=== PATIENT | male | born 1965 | race Caucasian/White ===

== ENCOUNTER 2022-06-21 05:05 | Inpatient (IN) ==
--- NOTE | 2022-06-01 12:09 | PAT Medication Instructions ---
Medication Instructions Date of Service June 01, 2022 Home Medications allopurinol 100 mg tablet 200 mg PO QAM atorvastatin 20 mg tablet 20 mg PO QPM cholecalciferol (vitamin D3) 50 mcg (2,000 unit) tablet (Vitamin D3) 2,000 unit PO BID furosemide 20 mg tablet (Lasix) 20 mg PO DAILY PRN LEG SWELLING hydrochlorothiazide 25 mg tablet 25 mg PO QPM insulin glargine 100 unit/mL (3 mL) subcutaneous pen (Basaglar KwikPen U-100 Insulin) 52 unit subcut HS losartan 100 mg tablet 100 mg PO QPM metformin 1,000 mg tablet 1,000 mg PO BID metoprolol succinate 100 mg tablet,extended release 24 hr 100 mg PO BID potassium citrate 15 mEq (1,620 mg) tablet,extended release (Urocit-K 15) 30 meq PO BID repaglinide 1 mg tablet (Prandin) 1 mg PO QAM warfarin 5 mg tablet 5 mg PO UD oxycodone 5 mg tablet 5 mg PO HS PRN Pain potassium chloride 10 mEq tablet,extended release 10 meq PO DAILY PRN Other semaglutide 1 mg/dose (4 mg/3 mL) subcutaneous pen injector (Ozempic) 1 mg subcut WK Continue as directed semaglutide 1 mg/dose (4 mg/3 mL) subcutaneous pen injector (Ozempic) 1 mg subcut WK ASK your prescriber and surgeon warfarin 5 mg tablet 5 mg PO UD DO NOT take the morning of surgery cholecalciferol (vitamin D3) 50 mcg (2,000 unit) tablet (Vitamin D3) 2,000 unit PO BID furosemide 20 mg tablet (Lasix) 20 mg PO DAILY PRN LEG SWELLING metformin 1,000 mg tablet 1,000 mg PO BID potassium citrate 15 mEq (1,620 mg) tablet,extended release (Urocit-K 15) 30 meq PO BID repaglinide 1 mg tablet (Prandin) 1 mg PO QAM potassium chloride 10 mEq tablet,extended release 10 meq PO DAILY PRN Other Take morning of surgery With a small sip of water, OTHERWISE NOTHING TO EAT OR DRINK AFTER MIDNIGHT: allopurinol 100 mg tablet 200 mg PO QAM metoprolol succinate 100 mg tablet,extended release 24 hr 100 mg PO BID Take evening before surgery atorvastatin 20 mg tablet 20 mg PO QPM cholecalciferol (vitamin D3) 50 mcg (2,000 unit) tablet (Vitamin D3) 2,000 unit PO BID furosemide 20 mg tablet (Lasix) 20 mg PO DAILY PRN LEG SWELLING (if needed) hydrochlorothiazide 25 mg tablet 25 mg PO QPM insulin glargine 100 unit/mL (3 mL) subcutaneous pen (Basaglar KwikPen U-100 Insulin) 52 unit subcut HS losartan 100 mg tablet 100 mg PO QPM metformin 1,000 mg tablet 1,000 mg PO BID metoprolol succinate 100 mg tablet,extended release 24 hr 100 mg PO BID potassium citrate 15 mEq (1,620 mg) tablet,extended release (Urocit-K 15) 30 meq PO BID oxycodone 5 mg tablet 5 mg PO HS PRN Pain (if needed) potassium chloride 10 mEq tablet,extended release 10 meq PO DAILY PRN Other (if needed) Other Notes If you have any questions please call us at [phone] or [phone] or [phone] or [phone]
--- NOTE | 2022-06-08 15:43 | Anesthesiology Consultation ---
Date of Service June 08, 2022 Assessment & Plan (1) Encounter for pre-operative examination: - Case discussed in detail with Dr. Truong including afib with RVR ranging 90s- 110s after metoprolol increase by cardiology. He advised pt is acceptable to proceed at this time and proceeding with surgery will be determined by anesthesiologist evaluation am DOS. He advised nothing further needed from his standpoint other than sending cardiology FYI message of persistent similar heart rates for continuity of care. Form completed. - check BSG and coags STAT am DOS. Bolus to anesthesiologist evaluation and discretion DOS. - pt plans to trim facial hair prior to surgery. - cardiology clearance 05/30/22 [facility]: "...permanent AF, metoprolol succinate (failed sotalol and tikosyn, QTc prolongation)...partial flutter s/p CTI ablation, 2007...borderline enlarged aorta, root and asc aorta measuring 3.9 cm 09/2020...chronic HFpEF, NYHA class 1-2...preoperative risk stratification regarding upcoming right hip replacement with Dr. Crowell...feeling well from a cardiac standpoint...repeat resting echo to reassess LVEF and diastolic dysfunction...able to assess valvular status at this time...permanent atrial fibrillation, ventricular rates rapid today in office averaging between 90s to 110s. asymptomatic...increase metoprolol to 100 mg twice daily...enlarged aortic root and ascending aorta measuring 3.9 cm...reassess aortic measurements on resting echocardiogram...nuclear stress test ordered to assess cardiac risk for orthopedic surgery...pending results to upcoming testing patient...will likely be placed at a moderate risk, less than 6.6%, for any adverse perioperative cardiovascular events associated with right hip surgery...no history of DVT/PE or CVA/TIA...will not require Lovenox bridge..." - COVID screening: Per assessment on 06/08/2022: Travel screen negative, no known COVID-19 positive contacts or current COVID-19 related symptoms in past 2 weeks. Pt vaccinated. Surgeon arranging preop COVID testing, scheduled 06/19/2022. Awaiting results. Chart Review Chart Review: Acceptable Risk for Surgery and Patient seen in Pre Admission Testing Teaching & Discussion Pre-Anesthesia Teaching/Discussion Notes: Instructed NPO after midnight before surgery, except medications with 15 cc of water. Medication instructions provided according to the PAT guidelines. History Surgery Operation Date: 06/21/22 07:00 Proposed Procedures p Right Total Hip Arthroplasty, Possible Femoral Head Autofraft, Possible Dual Mobility - Peter Crowell MD Height/Weight Height: 6 ft 1 in Weight: 164.4 kg Allergies Allergy/AdvReac Type Severity Reaction Status Date / Time No Known Allergies Allergy Mild Verified 05/31/22 13:17 Medications Home Medications Medication Instructions Recorded Confirmed Last Taken allopurinol 100 mg tablet 200 mg PO QAM 08/13/19 05/31/22 08/19/19 08:00 atorvastatin 20 mg tablet 20 mg PO QPM 08/13/19 05/31/22 08/19/19 21:00 cholecalciferol (vitamin D3) 50 2,000 unit PO BID 08/13/19 05/31/22 08/19/19 21:00 mcg (2,000 unit) tablet (Vitamin D3) furosemide 20 mg tablet (Lasix) 20 mg PO DAILY PRN LEG SWELLING 08/13/19 05/31/22 08/19/19 08:00 hydrochlorothiazide 25 mg tablet 25 mg PO QPM 08/13/19 05/31/22 08/19/19 21:00 insulin glargine 100 unit/mL (3 52 unit subcut HS 08/13/19 05/31/22 08/19/19 21:00 mL) subcutaneous pen (Basaglar KwikPen U-100 Insulin) losartan 100 mg tablet 100 mg PO QPM 08/13/19 05/31/22 08/19/19 21:00 metformin 1,000 mg tablet 1,000 mg PO BID 08/13/19 05/31/22 08/19/19 21:00 metoprolol succinate 100 mg 100 mg PO BID 08/13/19 05/31/22 08/19/19 08:00 tablet,extended release 24 hr potassium citrate 15 mEq (1,620 30 meq PO BID 08/13/19 05/31/22 08/19/19 21:00 mg) tablet,extended release (Urocit-K 15) repaglinide 1 mg tablet (Prandin) 1 mg PO QAM 08/13/19 05/31/22 08/19/19 08:00 warfarin 5 mg tablet 5 mg PO UD 08/13/19 05/31/22 08/14/19 21:00 oxycodone 5 mg tablet 5 mg PO HS PRN Pain 05/31/22 05/31/22 Unknown potassium chloride 10 mEq 10 meq PO DAILY PRN Other 05/31/22 05/31/22 Unknown tablet,extended release semaglutide 1 mg/dose (4 mg/3 mL) 1 mg subcut WK 05/31/22 05/31/22 Unknown subcutaneous pen injector (Ozempic) Past Medical History Medical History (Updated 06/08/22 @ 16:09 by Ivana De La Cruz PA-C) Atrial fibrillation anticoagulated, follows with Dr. Todd with [facility] Chronic heart failure EF 55-59%, grade 3 diastolic dysfunction CKD (chronic kidney disease), stage III Diabetes mellitus, type 2 IDDM Edema lower legs and feet > prn Lasix, wears compression hose; stable per pt since last cardio visit Enlarged aorta 3.9 cm Gout History of cardioversion X 3 History of COVID-19 08/2021-myalgias, rhinorrhea, fever, cough-lasted 5 days-denies hospitalization-full resolution of symptoms per pt Hyperlipidemia Hypertension controlled, stable per pt Kidney stones passed on own Sleep apnea NO DEVICE USED Patient denies h/o stroke, seizures, heart attack, blood clots or blood transfusions. Exercise / Class Metabolic Activity II 4-5 Yardwork/Stairs/Walk up hill (denies CP or SOB with 1 FOS) Past Family History Family History Father Family history of diabetes mellitus Grandmother (Maternal) Family history of diabetes mellitus Past Surgical History Surgical History History of cardiac cath x2 > no stents History of cardiac radiofrequency ablation X 1 (DONE AT [facility]) for Atrial flutter, over 5 yrs ago History of colonoscopy History of tonsillectomy Hx of vasectomy Past Anesthesia History No Hx of Anesthesia Complications and No Family Hx of Anesthesia Complications History of PONV No Hx of PONV and Hx of Motion Sickness Social History Smoking Status: Former smoker tobacco type: cigarettes Do You Dip or Chew Tobacco: No Smoking End Date: over 30 yrs Hx Alcohol Use: Yes alcohol intake frequency: holidays/special occasions only Hx Substance Use: No substance use type: does not use Review of Systems Occasional non-productive cough, chronic, denies change or worsening. Patient denies chest pain, shortness of breath, dyspnea on exertion, reflux, fever, chills, wheezing, or palpitations. Physical Exam Vital Signs Vitals BP 115/83 P 92-103 TEMP 98.7 SP02 97% on RA RESP 17 Physical Facial hair Full cervical extension range of motion without pain TMD 3.5 finger breadths Mallampati Score 3 Dentition: intact, several crowns-unsure if any in front; denies chipped or loose teeth, implants or bridges Lungs: normal respiratory effort. Clear throughout to auscultation, no adventi tious breath sounds Cardiac: irregularly irregular rhythm, no murmurs Carotid arteries: negative bruit bilat Lab Results Anesthesia Preop Results Results Anesthesia Widget: WBC 5.68 K/ul (4.8-10.8) 06/08/22 Hgb 15.3 g/dl (14.0-18.0) 06/08/22 Hct 45.5 % (40.1-51.0) 06/08/22 Plt 167 K/uL (130-400) 06/08/22 Na 135 mmol/L (136-145) L 06/08/22 K 4.3 mmol/L (3.5-5.1) 06/08/22 Cl 99 mmol/L (98-107) 06/08/22 CO2 25 mmol/L (21-32) 06/08/22 BUN 28 mg/dl (6-23) H 06/08/22 Creat 1.48 mg/dl (0.6-1.4) H 06/08/22 Glucose Level 92 mg/dl (70-99(Fasting)) 06/08/22 PT 30.5 Seconds (9.0-12.0) H 06/08/22 PTT 43.8 Seconds (21.0-31.0) H 06/08/22 INR 3.0 (0.9-1.1) H 06/08/22 HA1c 7.3 % (4.5-5.6) H 06/08/22 Urine Color Dark Yellow 06/08/22 Urine Appearance Clear (Clear) 06/08/22 Urine pH 5.0 (4.5-7.5) 06/08/22 Urine Specific [place] 1.030 (1.000-1.030) 06/08/22 Urine Protein Negative (Negative) 06/08/22 Urine Glucose (UA) Negative (Negative) 06/08/22 Urine Ketones Trace (Negative) H 06/08/22 Urine Blood Negative (Negative) 06/08/22 Urine Nitrite Negative (Negative) 06/08/22 Urine Bilirubin 1+ (Negative) H 06/08/22 Urine Urobilinogen Negative (Negative) 06/08/22 Urine Leukocyte Esterase Negative (Negative) 06/08/22 Blood Type O Positive 06/08/22 Antibody Screen NEGATIVE 06/08/22 Testing Electrocardiogram Date: 06/08/22 Afib with RVR, rate 113 bpm Low voltage QRS EKG from 05/30/22 at cardiology office: Afib with RVR, rate 116 bpm Low voltage QRS Cannot rule out anterior infarct cited on or before 09/17/2020 Chest X-Ray Date: 06/08/22 Frontal and lateral radiographs of the chest demonstrate the cardiomediastinal silhouette to be within normal limits. The aorta is atherosclerotic and ectatic. The lungs are clear of alveolar opacities. There is no evidence for effusion bilaterally. There is no evidence for vascular congestion. There is no acute osseous pathology. IMPRESSION: 1. No acute cardiopulmonary disease. Echocardiogram Date: 06/01/22 Afib with RVR at time of testing EF 55-59% Moderate cLVH Normal LV wall motion No significant valvular disease Borderline aortic root and proximal ascending aorta enlarged 3.9 cm Stress Test Date: 06/01/22 Pharmacologic EF 59% MPHR 84% No regional wall motion abnormalities
[2022-06-21] MEDS ORDERED: LR 15ML/HR IV SCH (06:00)
[2022-06-21] MEDS ORDERED: TRANEXAMIC ACID 1,000 MG x 1 **For Topical Use TOP SCH (06:00)
[2022-06-21] MEDS ORDERED: ROPIVACAINE 0.5% HCL/PF 150 MG, BUPIVACAINE 0.75% MPF 20 ML, EPINEPHrine 0.15 MG, Ketor... INFIL SCH (06:00)
[2022-06-21] MEDS ORDERED: LR 60ML/HR IV SCH (06:00)
[2022-06-21] MEDS ORDERED: TRANEXAMIC ACID 1,000 MG in 0.9 % SODIUM CHLORIDE 100 ML IR SCH (06:00)
[2022-06-21 06:10] LABS: INR 1.3 (0.9-1.1); Partial Thromboplastin Ratio 1.1; Partial Thromboplastin Time 30.5 Seconds (21.0-31.0); Prothrombin Time 13.6 Seconds (9.0-12.0)
--- NOTE | 2022-06-21 06:21 | History & Physical Bridge Note ---
Date of Service June 21, 2022 History & Physical Bridge Note I have examined the patient, reviewed the History & Physical and in the interval since the performance of the History & Physical I have noted the following changes of clinical significance: consent obtained/site verified/covid screen negative.no changes noted
[2022-06-21] MEDS ORDERED: BUPIVACAINE 0.5 % 5 MG/1 ML PF 10ML VIAL ONE (06:24)
[2022-06-21] MEDS ORDERED: MIDAZOLAM HCL 1 MG/ML 2ML VIAL ONE (06:25)
[2022-06-21] MEDS ORDERED: fentaNYL citrate 100 MCG/2 ML VIAL ONE ×2 (06:27→07:11)
[2022-06-21] MEDS ORDERED: ORTHO JOINT ANESTHETIC ONE (06:32)
[2022-06-21] MEDS ORDERED: LIDOCAINE 2% MPF LOCAL 5 ML VIAL INFIL ONE (06:33)
[2022-06-21] MEDS ORDERED: ONDANSETRON INJ 2 MG/ML 2 ML VIAL ONE (06:33)
[2022-06-21] MEDS ORDERED: PROPOFOL IV EMULSION 10 MG/ML 20 ML VIAL IV ONE (06:33)
[2022-06-21] MEDS ORDERED: ePHEDrine sulfate 50 MG/ML AMP IV PRN (06:44)
[2022-06-21] MEDS ORDERED: ONDANSETRON INJ 2 MG/ML 2 ML VIAL IV PRN ×2 (06:44→09:38)
[2022-06-21] MEDS ORDERED: ATROPINE SULFATE 0.1 MG/ML 10ML SYR IV PRN (06:44)
[2022-06-21] MEDS ORDERED: HYDROmorphone INJ 2 MG/ML SYR/VIAL ONE (07:20)
[2022-06-21] MEDS ORDERED: SODIUM CHLORIDE 0.9% INJ 10 ML VIAL ONE (07:20)
[2022-06-21] MEDS ORDERED: ESMOLOL HCL INJ 10 MG/ML 10ML VIAL IV ONE (07:20)
[2022-06-21] MEDS ORDERED: GLYCOPYRROLATE 0.2 MG/ML VIAL ONE (08:03)
[2022-06-21] MEDS ORDERED: NEOSTIGMINE METHYLSULFATE 1 MG/ML 10ML VIAL ONE (08:04)
[2022-06-21] MEDS ORDERED: PHENYLEPHRINE 100MCG/ML 5ML SYR ONE (08:19)
[2022-06-21] MEDS ORDERED: LARYING-O-JET KIT (LTA) ONE (08:45)
--- NOTE | 2022-06-21 09:12 | Post Operative Brief Note ---
Immediate Post Op Note v1 Date of Surgery June 21, 2022 Pre & Post Diagnosis Operation Date: 06/21/22 07:00 Pre-Op Diagnosis: Osteoarthritis Hip Right Post-Op Diagnosis: Osteoarthritis Hip Right I identified the patient and participated in the time-out.: Yes Procedure Operation Date: 06/21/22 07:00 Actual Procedures p Right Total Hip Arthroplasty, Dual Mobility Cup(Right) - Peter Crowell MD Surgeon Peter Crowell MD [employer] Tootie/Eliel Estimated Blood Loss 200 Findings Consistent with Post-Op Diagnosis severe deformity/dysplasia
--- NOTE | 2022-06-21 09:33 | Operative Report ---
Post Operative Report Pre & Post Diagnosis Operation Date: 06/21/22 07:00 Pre-Op Diagnosis: Osteoarthritis Hip Right Post-Op Diagnosis: Osteoarthritis Hip Right I identified the patient and participated in the time-out.: Yes Procedure Operation Date: 06/21/22 07:00 Actual Procedures p Right Total Hip Arthroplasty, Dual Mobility Cup(Right) - Peter grey MD Surgeon Peter Crowell MD Air Route Traffic Controller Tootie/Eliel Estimated Blood Loss 200 Findings Consistent with Post-Op Diagnosis Specimens None Disposition Accompanied Patient To Recovery: Yes Disposition: Recovery Room Description of Procedure Patient was taken to the operating room where anesthesia was administered. Patient was prepped and draped in the usual sterile fashion. Please see attending's operative report for specifics of the procedure. I was present for the entire case from initial patient positioning through final wound closure. Assistance was provided in tissue retraction, hemostasis, and final wound closure. Patient was taken to the recovery room in satisfactory condition. I attest to the content of the Intraoperative Record and any orders documented therein. Any exceptions are noted below.
--- NOTE | 2022-06-21 09:35 | Operative Report ---
Post Operative Report Pre & Post Diagnosis Operation Date: 06/21/22 07:00 Pre-Op Diagnosis: Osteoarthritis Hip Right Post-Op Diagnosis: Osteoarthritis Hip Right I identified the patient and participated in the time-out.: Yes Procedure Operation Date: 06/21/22 07:00 Actual Procedures p Right Total Hip Arthroplasty, Dual Mobility Cup(Right) - Peter grey MD Surgeon TIFFANY Crowell MD Senior Grant Writer Tootie/Eliel CHASE Estimated Blood Loss 200 Findings Consistent with Post-Op Diagnosis see operative report Specimens see operative report Drains none Complications none Disposition Accompanied Patient To Recovery: Yes Indications This 57-year-old male presented to the office with complaints of persisting right hip pain. He had tried conservative care measures without improvement. He elected to proceed with surgical intervention after being educated about potential risks and outcomes. Preoperative imaging was obtained. Description of Procedure Patient was taken to the operating room where he was given general anesthesia. He was prepped and draped in the usual sterile fashion. Please see Dr. Crowell's operative report for specifics of the procedure. I was present for the entire case from initial patient positioning through final wound closure. Assistance was provided in tissue retraction, hemostasis, trial implant placement, final implant placement, and final wound closure. Patient was taken to the recovery room in satisfactory condition. I attest to the content of the Intraoperative Record and any orders documented therein. Any exceptions are noted below.
[2022-06-21] MEDS ORDERED: MAGNESIUM HYDROXIDE SUSP 30 ML UDC PO PRN (09:38)
[2022-06-21] MEDS ORDERED: TAMSULOSIN HCL 0.4 MG CAP PO PRN (09:38)
[2022-06-21] MEDS ORDERED: ALUMINUM/MAGNESIUM SUSP 30 ML UDC PO PRN (09:38)
[2022-06-21] MEDS ORDERED: NALOXONE HCL 0.4 MG/1 ML VIAL/CARP IV PRN (09:38)
[2022-06-21] MEDS ORDERED: diphenhydrAMINE 50 MG/ML VIAL IV PRN (09:38)
[2022-06-21] MEDS ORDERED: bisacodyL 10 MG SUPP PR PRN (09:38)
[2022-06-21] MEDS ORDERED: HYDROmorphone INJ 0.5 MG/0.5 ML SYR IV PRN (09:38)
[2022-06-21] MEDS ORDERED: METOCLOPRAMIDE HCL INJ 5 MG/ML 2 ML VIAL IV PRN (09:38)
[2022-06-21] MEDS ORDERED: LABETALOL HCL IV 5 MG/ML 20ML IV PRN (09:39)
--- NOTE | 2022-06-21 09:44 | Progress Notes ---
DATE OF SERVICE: 06/21/2022 SUBJECTIVE: Postop check status post right total hip replacement. The patient is awake and alert, f ollows commands. Denies any chest pain, shortness of breath, fever, chills, nausea, vomiting or head ache. OBJECTIVE: VITAL SIGNS: Stable. He is afebrile. He is in his normal AFib. ABDOMEN: Soft, nontender. MUSCULOSKELETAL: Neurovascular check of femoral sciatic nerve is normal. Wound dressing clean, dry and intact. X-RAYS: Pending. ASSESSMENT AND PLAN: Overall, doing reasonably well. Did not have a spinal based on his INR being 1. 3, so he has typical postoperative pain at this point in time. We will continue with care pathway. Mobilize partial weightbearing because of his size to protect the implants at this point and we will follow his INR in the morning to adjust his Coumadin dose. Estimated blood loss was 200 mL or less. Crystalloid per anesthesia. Job ID: [id number]
[2022-06-21] MEDS ORDERED: SODIUM CHLORIDE 0.9% 1000ML 1,000 ML IV SCH (09:45)
--- NOTE | 2022-06-21 09:51 | Discharge Summary (DS) ---
DATE OF ADMISSION: 06/21/2022 DATE OF POTENTIAL DISCHARGE: 06/22/2022 CHIEF COMPLAINT: Right hip pain. HISTORY OF PRESENT ILLNESS: The patient is a 57-year-old male who has intractable hip pain based on severe deformity, severe osteoarthritis, dysplasia of his right hip. At this point in time, he has been cleared for surgery. He has significant high risk factors and understands the risks and consequences including significant CHF, hypertension, hypercholesterolemia, atrial fibrillation, diabetes, morbid obesity, kidney stones, renal insufficiency, gout, varicose veins, GERD and vitamin D deficiency. PAST SURGICAL HISTORY: Remarkable for heart catheterization, sebaceous cyst excision, tonsillectomy, colonoscopies, cardioversion. FAMILY HISTORY: Remarkable for diabetes, hypertension, heart disease, prostate cancer and obesity. SOCIAL HISTORY: Reveals he is . No tobacco use. Occasional alcohol use. 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 ALLERGIES: None. PREADMISSION MEDICATIONS: Include potassium, metformin, hydrochlorothiazide, Coumadin, metoprolol, repaglinide, allopurinol, glipizide, atorvastatin, losartan, furosemide, insulin, vitamin D, Ozempic, Percocet p.r.n. REVIEW OF SYSTEMS: Reveals no chest pain, shortness of breath, fever, chills or nausea. HOSPITAL COURSE: To date has been uneventful. He tolerated his hip replacement. His x-rays are pending. At this point in time, we will continue with care pathway. Social service/case management to see today. Has support at home, hopefully be able to go home with services. Job ID: [id number] [facility]
[2022-06-21] MEDS: fentaNYL citrate 100 MCG/2 ML VIAL IV PRN ×4 (09:52→10:07)
--- NOTE | 2022-06-21 10:00 | Operative Report (OR) ---
DATE OF PROCEDURE: 06/21/2022. SURGEON: Peter Crowell MD. RAMP MANAGER: Dr. Sommers. SECOND RAMP MANAGER: Herminio Julian PA-C. PREOPERATIVE DIAGNOSES: Severe dysplasia, right hip with severe osteoarthritis deformity, femur. POSTOPERATIVE DIAGNOSES: Severe dysplasia, right hip with severe osteoarthritis deformity, femur. T his is all in the right hip. OPERATION PERFORMED: Noncemented right total hip replacement. PERIOPERATIVE SITUATION: Medically cleared male with intractable hip pain, has severe deformity of h is femur with marked dysplasia and vertical orientation of the femur. Options were discussed with norma arana. CT scan was performed to ensure that there was reasonable bone. All of his clearances were perfo rmed since he is high risk cardiac rosa. Also has diabetes. He and his understand risks and consequences, and consent was obtained. He wants to proceed wit h hip replacement. The possibility of bone grafting was discussed. DESCRIPTION OF PROCEDURE: The patient was appropriately identified, site verified, consent verified. Antibiotics were confirmed as being given. The right lower extremity was prepped and draped in rou bert fashion with the patient in left lateral decubitus position with everything appropriately padded . Leg lengths were relatively equal. Due to his large size, an appropriate incision was made. Full thickness flaps raised. Two Charnley retractors utilized. The gluteus carmen fascia and IT band w ere then incised. The hip anatomy was then palpated. It was very abnormal. Tediously dissecting do wn to the femoral neck capsule was opened and joint fluid identified and working from inside-out, the capsule was excised. The hip was then dislocated. The femoral neck was resected leaving a generous neck based on his defo rmity to his femur. The labrum was then excised. There was a lot of pulvinar in the acetabulum. Th is was all removed. The serial reaming was then carried up to a size 54 and a 54 cup impacted into a ppropriate anteversion and inclination and secured with 2 additional screws 6.5 one being 25 in lengt h, one being 20 in length. Palpation did not reveal any protuberance of the screws. Cup fixation was excellent. The wound was then irrigated and the trial liner seated for the dual mobility. The femur was then de livered into the wound and appropriately prepared proximally with a rongeur, gill box fixer, canal finder , lateralizing rasp and serial broaching up to a size 3. Trial reduction was then carried out, one s murali was slightly short, so we elected to use a 5. All trial implants were then removed. The permanent hole eliminator seated, the permanent liner aguilar staley into position for the dual mobility. Care was taken to ensure that it was appropriately symmetr ically placed. Femur was then delivered back into the wound after appropriate irrigation and the siz e 3 permanent stem placed and then the head and neck placed. The hip was then reduced. It was stabl e in all planes. Leg lengths were excellent. There was no major bleeding. The wound was then irrigated with Betadine for 3 minutes, TXA for 3 minutes and then the wound was th en closed. There was no capsule to close due to the deformity, although that was all shrunken and is not reusable. There was really no piriformis or anything like that to appropriately closed. The sc iatic nerve was palpated, but not exposed. It was protected at all times. Wound was irrigated one final time and then closed with #2 Vicryl for the fascia. Deep fat and then 2-0 Vicryl for the superficial fat. Stainless steel clips were then placed and the skin was then appr opriately dressed. The patient was transferred to recovery room in satisfactory condition, having to lerated the procedure well. ESTIMATED BLOOD LOSS: 200 mL. CRYSTALLOID: Per anesthesia. PATHOLOGY: Pending on bone. DVT prophylaxis with Coumadin. He is on it chronically for atrial fibrillation. His INR is 1.3 this morning. He said he is a little bit woozy, will be careful with that. SUMMARY OF IMPLANTS: Size 54 acetabular shell sector cup hole eliminator, size 6.5 x 25 and 6.5 x 20 cancellous screw 54 metal liner, size 3 high offset Tri-Lock size 28+5 head. Then, the BI-MENTUM PE liner was 28 x 47 for the dual mobility hip. This was all [employer] product. Job ID: [id number]
[2022-06-21] MEDS: HYDROmorphone INJ 1 MG/ML SYRINGE IV PRN ×8 (10:12→10:52)
[2022-06-21] MEDS ORDERED: FUROSEMIDE 20 MG TAB PO PRN (11:15)
[2022-06-21] MEDS ORDERED: POTASSIUM CHLORIDE 10 MEQ TABCR PO PRN (11:15)
--- NOTE | 2022-06-21 11:54 | Anesthesiology Progress Note ---
Date of Service June 21, 2022 Anesthesia Post Procedure Vital Signs Vital Signs: Temp Pulse Resp BP Pulse Ox O2 Del Method O2 Flow Rate 06/21/22 11:40 111 H 16 89/56 L 99 Nasal Cannula 2 06/21/22 11:10 97.2 F L 102 H 16 92/61 L 99 Nasal Cannula 2 06/21/22 11:00 97.2 F L 95 H 16 91/65 L 100 Nasal Cannula 3 06/21/22 10:50 109 H 16 83/63 L 94 Nasal Cannula 3 06/21/22 10:40 108 H 16 105/72 94 Room Air 06/21/22 10:30 113 H 14 102/82 94 Room Air 06/21/22 10:20 108 H 8 L 118/74 99 Oxymask 5 06/21/22 10:10 103 H 13 108/93 100 Oxymask 7 06/21/22 10:00 105 H 18 101/81 99 Oxymask 5 06/21/22 09:50 100 H 18 136/105 H 98 Oxymask 7 06/21/22 09:40 101 H 20 132/96 94 Oxymask 7 06/21/22 09:32 97.7 F 122 H 20 173/93 H 99 Oxymask 7 06/21/22 05:50 98.2 F 98 H 20 125/96 99 Room Air Pain Intensity Right Hip: Pain Intensity: 5 Transfer of Care Handoff Completed per policy Notes Mental Status: alert / awake / arousable and participated in evaluation Patient Amnestic to Procedure: Yes Nausea / Vomiting: adequately controlled Pain: adequately controlled Airway Patency, RR, SpO2: stable & adequate BP & HR: stable & adequate Hydration State: stable & adequate Anesthetic Complications: no major complications apparent and Pt Satisfied with anesthetic care
[2022-06-21] MEDS: KETOROLAC TROMETHAMINE 15 MG/ML VIAL IV SCH ×3 (13:00→21:30)
--- NOTE | 2022-06-21 13:16 | XRay Report ---
AP RIGHT HIP History: Right total hip arthroplasty. Degenerative arthritis. Postop. FINDINGS: The patient is status post a right total hip arthroplasty. The hardware is intact. No fract ure or dislocation. Skin clara are in place. IMPRESSION: Right total hip arthroplasty. No evidence for hardware complication ACT 112: Negative or not required by law. Electronically signed by: Breezy Vivas M.D. 06/21/2022 1:15 PM
[2022-06-21] MEDS ORDERED: ORTHO WARFARIN NOMOGRAM SCH (14:00)
[2022-06-21] MEDS: INSULIN ASPART PER UNIT SC SCH ×3 (14:19→21:28)
[2022-06-21] MEDS: ACETAMINOPHEN 500 MG TAB PO SCH ×2 (15:26→21:31)
[2022-06-21] MEDS ORDERED: WARFARIN SOD 2.5 MG TAB PO ONE (16:00)
[2022-06-21] MEDS ORDERED: SODIUM CHLORIDE 0.9% 1000ML 250 ML IV ONE (16:26)
[2022-06-21] MEDS: ceFAZolin 2000MG 2,000 MG/15 ML SYR IV SCH ×2 (16:49→23:58)
[2022-06-21] MEDS: FERROUS GLUCONATE 324 MG TAB PO SCH (16:51)
[2022-06-21] MEDS: ASCORBIC ACID 500 MG TAB PO SCH (16:51)
[2022-06-21] MEDS: LOSARTAN POTASSIUM 50 MG TAB PO SCH (20:51)
[2022-06-21] MEDS: hydroCHLOROthiazide 25 MG TAB PO SCH (20:54)
[2022-06-21] MEDS ORDERED: METOPROLOL SUCC 50MG EXT REL TAB PO SCH (21:00)
[2022-06-21] MEDS ORDERED: POTASSIUM CITRATE 15 MEQ PO SCH (21:00)
[2022-06-21] MEDS ORDERED: COUGH DROP (SUGAR FREE) LOZ 24 LOZ/1 BOX BUCCAL PRN (21:13)
[2022-06-21] MEDS: ATORVASTATIN 20 MG TAB PO SCH (21:21)
[2022-06-21] MEDS: SENNA 8.6 MG TAB PO SCH (21:23)
[2022-06-21] MEDS: DOCUSATE SODIUM 100 MG CAP PO SCH (21:31)
[2022-06-22] MEDS: KETOROLAC TROMETHAMINE 15 MG/ML VIAL IV SCH (03:03)
[2022-06-22] MEDS: ACETAMINOPHEN 500 MG TAB PO SCH ×3 (05:29→22:14)
[2022-06-22] MEDS: oxyCODONE HCL IR 5 MG TAB (IMMEDIATE RELEASE) PO PRN (06:30)
[2022-06-22] MEDS ORDERED: TAMSULOSIN HCL 0.4 MG CAP PO ONE (06:50)
[2022-06-22 07:00] LABS: Basophils # (auto) 0.03 K/uL (0-0.2); Basophils % (auto) 0.3 %; Eosinophils # (auto) 0.05 K/uL (0-0.50); Eosinophils % (auto) 0.5 %; Hematocrit (blood only) 42.4 % (40.1-51.0); Hemoglobin 13.8 g/dl (14.0-18.0); Immature Granulocytes # (auto) 0.02 K/uL (0.00-0.02); Immature Granulocytes % (auto) 0.2 %; Lymphocytes % (auto) 10.6 %; Mean Corpuscular Hemoglobin 29.6 pg (25.0-34.0); Mean Corpuscular Hgb Conc 32.5 g/dL (32.0-36.0); Mean Platelet Volume 11.9 fL (9.4-12.4); Monocytes # (auto) 0.78 K/uL (0.24-0.82); Monocytes % (auto) 8.2 %; Neutrophils # (auto) 7.58 K/uL (1.4-6.5); Neutrophils % (auto) 80.2 %; Platelet Count 154 K/uL (130-400); RDW Coefficient of Variation 13.8 % (11.5-14.5); RDW Standard Deviation 46.3 fL (36.4-46.3); Red Blood Count 4.66 M/uL (4.63-6.08); White Blood Count 9.46 K/ul (4.8-10.8)
--- NOTE | 2022-06-22 07:06 | Progress Notes ---
SUBJECTIVE: Postop check status post right total hip replacement. The patient is sitting up in chair, looking in no acute distress. His main issue at this point in time is that he has not been able to void. He denies any chest pain, shortness of breath, fever, chills, nausea, vomiting, or headache. OBJECTIVE: Vital signs are stable. He is afebrile. Neurovascular check femoral sciatic nerve is normal. Wound dressing is clean and dry. Doing well. A.m. lab work pending. Coumadin dose per result today. Will try to keep INR 1.8 to 2.2 and not go any higher. We may need to adjust from his baseline dose. Would like to see what his result is this morning. He will likely escalate very quickly, so I would not go with a high dose. His a.m. glucose is 158, other laboratory work is pending. ASSESSMENT AND PLAN: Doing well. Had some transient hypotension, likely based on his extra beta agnes he received in the OR from anesthesia. 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 That will be much different than his baseline pain. He may require decreased blood pressure medications. This was discussed with him as well. We will have him do PT, OT and hopefully discharge later today after he voids.Give Flomax now. Job ID: [id number] MTDD
[2022-06-22 07:22] LABS: INR 1.2 (0.9-1.1); Prothrombin Time 12.5 Seconds (9.0-12.0)
[2022-06-22 07:25] LABS: BUN Creatinine Ratio 17.9 (10-20); Calcium 8.6 mg/dl (8.5-10.1); Creatinine Clr Calc Pharmacy 67.1 ml/min; Est GFR (African American) 42.7 ml/min; Est GFR (Non-African American) 36.9 ml/min; Potassium 4.5 mmol/L (3.5-5.1)
[2022-06-22] MEDS: ASCORBIC ACID 500 MG TAB PO SCH ×2 (08:53→17:10)
[2022-06-22] MEDS: allopurinoL 100 MG TAB PO SCH (08:53)
[2022-06-22] MEDS: FERROUS GLUCONATE 324 MG TAB PO SCH ×2 (08:53→17:10)
[2022-06-22] MEDS: MULTIVITAMIN TAB PO SCH (08:54)
[2022-06-22] MEDS: DOCUSATE SODIUM 100 MG CAP PO SCH ×2 (09:07→20:22)
--- NOTE | 2022-06-22 09:07 | Orthopedic Progress Note ---
Date of Service June 22, 2022 Assessment & Plan (1) S/P total right hip arthroplasty: Plan: Patient's dressings were changed today. Prevena wound VAC was applied. It is functioning well. Patient is aware of how to take care of it. He will follow- up with me in the office next at 11 AM for wound VAC removal. He does have a mild bump in his BUN and creatinine. He is also having some difficulty voiding. He was given Flomax this morning. We will see how he does throughout the day, to ensure he can void on his own. Elevation in BUN and creatinine are likely from some mild dehydration. He does have a history of CHF so care will be needed gentle hydration. He will maintain 50% weightbearing on the right leg for the next few weeks. Prescriptions for his Percocet and Coumadin have been sent to his pharmacy. We will start at 2 mg daily, as the patient said he tended to run closer to 3 for his INR at 5 mg daily. Admission and Anticipated Discharge Date Admission Date: June 21, 2022 Subjective Patient was seen in his room this morning. States he did fairly well overnight. He did have to be straight cathed around midnight. He states it was productive of around 300 to 350 mL of urine. He states he still does not have an urge to void. He did take Flomax this morning. He has minimal pain in his hip at this point. Denies any numbness or tingling. He has been ambulatory to the bathroom. No other complaints. Review of Systems Review of Systems: Unchanged from yesterday. Physical Exam Physical Exam: General: Well-developed, well-nourished, middle-aged male, in no acute distress. Sitting in his chair. Alert and oriented. Eating breakfast. Skin: Warm dry with good turgor. Postsurgical dressing is in place on the right hip. Upon removal, there is a small amount of bloody drainage on the inner dressings. 3 nickel sized areas are present. No active bleeding at this point. [place] are in place. Wound edges are sealed. No ecchymosis or edema at this point. Venous stasis changes on the right lower leg are unchanged from yesterday. Musculoskeletal: Patient has intact motor function of the right leg. He is able to stand from a seated position. Intact motor function for the knee and ankle. Neurologic: Gross sensation is intact across the right leg by soft touch. Peripheral pulses are 2+. Results & Data ([facility]) Vital Signs (Past 12 Hours) Vital Signs Temp Pulse Resp BP BP Pulse Ox O2 Del Method 06/22/22 07:36 36.9 C 73 18 101/69 95 Room Air 06/22/22 03:05 37.1 C 83 16 105/67 94 Room Air 06/21/22 21:35 Room Air 06/21/22 23:25 37.0 C 104 H 18 83/55 L 92 Room Air Laboratory Results H&H obtained this morning are 13.8 and 42.4. White count normal at 9.46. INR is 1.2 this morning. PRP shows a sodium level of 131. Potassium 4.5. Chloride 99. BUN is elevated from preop at 35. Creatinine is also elevated from preop at 1.96. Preop values were 28 and 1.48. Glucose has been stable overnight with a low of 107 and a max of 158.
[2022-06-22] MEDS: INSULIN ASPART PER UNIT SC SCH ×4 (09:08→22:12)
[2022-06-22] MEDS ORDERED: WARFARIN SOD 2 MG TAB PO SCH (10:00)
[2022-06-22] MEDS: METOPROLOL SUCC 25MG EXT REL TAB PO SCH ×2 (10:08→10:11)
[2022-06-22] MEDS ORDERED: METOPROLOL SUCC 25MG EXT REL TAB PO ONE (16:30)
[2022-06-22] MEDS ORDERED: hydroCHLOROthiazide 25 MG TAB PO ONE (16:45)
[2022-06-22] MEDS: ATORVASTATIN 20 MG TAB PO SCH (20:19)
[2022-06-22] MEDS: SENNA 8.6 MG TAB PO SCH (20:20)
[2022-06-22] MEDS: LOSARTAN POTASSIUM 50 MG TAB PO SCH (20:20)
[2022-06-23] MEDS: oxyCODONE HCL IR 5 MG TAB (IMMEDIATE RELEASE) PO PRN (02:49)
[2022-06-23] MEDS: ACETAMINOPHEN 500 MG TAB PO SCH ×3 (05:46→20:50)
--- NOTE | 2022-06-23 06:48 | Progress Notes ---
DATE OF SERVICE: 06/23/2022 SUBJECTIVE: Postoperative day #2, status post right total hip replacement. The patient is doing well. Denies any chest pain, shortness of breath, fever, chills, nausea, vomiting or headache. T-max was 37.6. He is now afebrile at 36.8. His O2 sats are good at 96% on room air. OBJECTIVE: VITAL SIGNS: Stable, but the blood pressure still runs in the 90s. Heart rate bounces up into the one-teens. ABDOMEN: Soft, nontender. CALVES: Soft, nontender. NEUROVASCULAR CHECK: Femoral sciatic nerve is normal. He has expected weakness. Wound dressing clean, dry and intact. ASSESSMENT: Status post total hip replacement. Comorbidities include high BMI/obesity. Has poor exercise tolerance. Has a history of congestive heart failure, history of diabetes. At this point in time, he is awaiting case management finalization. Medications need to be adjusted in order to keep his heart rate from going above the 150 range, but not have his blood pressure go too low. I have decreased his Toprol to 25 mg b.i.d., may need to increase that as blood pressure and heart rate control changes. I suspect that having the sympathetic stimulus removed in the form of his hip arthritis has decreased his chronic anxiety and pain levels and has therefore decreased his need for blood pressure medication. This needs to be observed by his inbound call center agent and by his primary care providers. PLAN: At this point in time is to wait for case management finalization. Blood pressure medications per primary care and cardiology when he gets home. Coumadin dose to keep INR 1.8-2.2. Job ID: [id number] [facility]
[2022-06-23] MEDS: allopurinoL 100 MG TAB PO SCH (08:55)
[2022-06-23] MEDS: FERROUS GLUCONATE 324 MG TAB PO SCH ×2 (08:56→17:03)
[2022-06-23] MEDS: MULTIVITAMIN TAB PO SCH (08:56)
[2022-06-23] MEDS: TAMSULOSIN HCL 0.4 MG CAP PO SCH (08:56)
[2022-06-23] MEDS: ASCORBIC ACID 500 MG TAB PO SCH ×2 (08:56→17:04)
[2022-06-23] MEDS: DOCUSATE SODIUM 100 MG CAP PO SCH ×2 (08:59→21:08)
[2022-06-23] MEDS ORDERED: METOPROLOL SUCC 25MG EXT REL TAB PO SCH ×2 (09:00→21:00)
[2022-06-23] MEDS: METOPROLOL SUCC 25MG EXT REL TAB PO SCH (09:06)
[2022-06-23] MEDS: INSULIN ASPART PER UNIT SC SCH ×4 (09:15→21:07)
[2022-06-23 10:47] LABS: INR 1.1 (0.9-1.1); Prothrombin Time 12.1 Seconds (9.0-12.0)
[2022-06-23] MEDS ORDERED: WARFARIN SOD 5 MG TAB PO ONE (11:30)
[2022-06-23] MEDS ORDERED: PHARMACY GLYCEMIC MGMT CONSULT PRN (16:06)
[2022-06-23] MEDS ORDERED: LANTUS PER UNIT CHARGE SQ ONE (16:30)
--- NOTE | 2022-06-23 18:57 | Progress Notes ---
DATE OF SERVICE: 06/23/2022. SUBJECTIVE: Orthopedic postop check rounds. Patient is unfortunately being limited by insurance as to where he can go. At this point in time, he is not confident enough to go home. He has comorbidit ies including high BMI week. Exercise tolerance is poor. He has a history of congestive heart failu re, has history of diabetes. PHYSICAL EXAMINATION: At this point in time his vital signs are stable. He is afebrile. He is 100% saturated on room air. His exercise tolerance as mentioned, has been poor. Exam reveals neurovascular check femoral sciatic nerve to be normal. Wound dressing clean, dry and i ntact. Wound VAC is clean and dry. ASSESSMENT: At this point in time doing well, but has poor confidence for mobility and is unsafe to go home. Would really benefit from residential as a third alternative, but second alternative wo uld be rehabilitation. Insurance is then worked through case management without any success. As a r esult, he needs to stay in the hospital, has been admitted and will follow daily. We will see how he does over the next 2 days. Hopefully, he will have a bed available on Sunday. Coumadin 5 mg today. We will watch his Toprol-XL. At this point in time, he is doing reasonably well on a much lower do se, as was said likely based on the removal of the pain generator from his right hip. Job ID: [id number]
[2022-06-23] MEDS: SENNA 8.6 MG TAB PO SCH (20:53)
[2022-06-23] MEDS: ATORVASTATIN 20 MG TAB PO SCH (20:54)
[2022-06-23] MEDS ORDERED: SODIUM CHLORIDE 0.9% 1000ML 1,000 ML IV ONE (21:34)
[2022-06-23 22:14] LABS: BUN Creatinine Ratio 25.3 (10-20); Calcium 8.5 mg/dl (8.5-10.1); Creatinine Clr Calc Pharmacy 70.7 ml/min; Est GFR (African American) 45.5 ml/min; Est GFR (Non-African American) 39.3 ml/min; Magnesium 1.6 mg/dl (1.7-2.4); Potassium 3.9 mmol/L (3.5-5.1)
[2022-06-23 22:20] LABS: Basophils # (auto) 0.04 K/uL (0-0.2); Basophils % (auto) 0.5 %; Echinocytes 1+; Eosinophils # (auto) 0.12 K/uL (0-0.50); Eosinophils % (auto) 1.4 %; Hematocrit (blood only) 37.4 % (40.1-51.0); Hemoglobin 12.7 g/dl (14.0-18.0); Immature Granulocytes # (auto) 0.03 K/uL (0.00-0.02); Immature Granulocytes % (auto) 0.4 %; Lymphocytes # (auto) 1.09 K/uL (1.2-3.4); Lymphocytes % (auto) 12.9 %; Mean Corpuscular Hemoglobin 30.5 pg (25.0-34.0); Mean Corpuscular Volume 89.7 fL (80.0-100.0); Mean Platelet Volume 11.6 fL (9.4-12.4); Monocytes # (auto) 0.73 K/uL (0.24-0.82); Monocytes % (auto) 8.7 %; Neutrophils # (auto) 6.41 K/uL (1.4-6.5); Neutrophils % (auto) 76.1 %; Platelet Count 149 K/uL (130-400); Platelet Estimate Normal (Normal); RDW Coefficient of Variation 13.8 % (11.5-14.5); RDW Standard Deviation 44.8 fL (36.4-46.3); Red Blood Count 4.17 M/uL (4.63-6.08); White Blood Count 8.42 K/ul (4.8-10.8)
[2022-06-23] MEDS ORDERED: POTASSIUM CHLORIDE CRTAB 20 MEQ TABCR PO STA (22:28)
--- NOTE | 2022-06-23 22:29 | Hospitalist Consultation ---
Date of Consultation June 23, 2022 Assessment & Plan (1) S/P total right hip arthroplasty: Final Assessment and Recommendations as follows : Right hip osteoarthritis status post surgery Hypotension possibly from hypovolemia Hyponatremia, ARF on CKD secondary to above chronic diastolic heart failure (EF 55%, TTE 2021), patient on the dry side A. fib status post cardioversion on Coumadin, rate slightly elevated, INR subtherapeutic hx PVD hyperlipidemia on statin Rx DM 2 on oral medications, reasonable control as of recent hemoglobin A1c of 7.31 May 2022 Postop anemia Postop constipation past tobacco abuse Monitor creatinine response to IVF Appropriate to hold home diuretic/losartan for now until creatinine back to baseline Baseline UA Careful correction of sodium Hyponatremia work-up Renal ultrasound if kidney function does not improve with IVF bolus Nephrology consultation if serum sodium and kidney function do not improve with initial IVF therapy (Patient known to [facility]. Glycemic management as per pharmacy as per primary service orders. Follow CBC patient, transfuse PRBC if hemoglobin less than 8 and or for symptomatic anemia (hx PVD) Lactulose 1 dose now as additional bowel regimen medication. DVT prophylaxis. Coumadin, SCDs while INR less than 2 Thank you very much for this consultation. Dr. Carlos will follow patient's progress. Text document was generated using [employer] voice recognition software. It may contain grammatical or spelling errors. Kindly contact undersigned for clarification of any documentation item in question. History of Present Illness Reason for Consultation: Medical management Requesting Physician: Dr. Holman Attending Physician: Peter Crowell MD History of Present Illness PCP : Dr. Dominguez History obtained from patient and records. Medical history significant for chronic diastolic heart failure (EF 55%, TTE 2021), A. fib status post cardioversion on Coumadin, PVD, ISH/CPAP noncompliance, hypertension, hyperlipidemia, DM 2 on oral medications, CRI baseline creatinine (1.4-1.6), GERD, past tobacco abuse. Last confinement 2014 under cardiology service for A. fib with RVR. Patient underwent elective right hip replacement 2 days ago. No chest pain, no SOB postop. Last BM was 2 days ago. Currently waiting for possible fci/rehab facility placement postop. Tonight RN contacted orthopedic provider lamination builder regarding patient's low blood pressure. Medical management requested. 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 Allergies Allergy/AdvReac Type Severity Reaction Status Date / Time No Known Allergies Allergy Mild Verified 06/21/22 05:41 Home Medications Medication Instructions Recorded Confirmed Type allopurinol 100 mg tablet 200 mg PO QAM 08/13/19 06/21/22 History atorvastatin 20 mg tablet 20 mg PO QPM 08/13/19 06/21/22 History cholecalciferol (vitamin D3) 50 2,000 unit PO BID 08/13/19 06/21/22 History mcg (2,000 unit) tablet (Vitamin D3) furosemide 20 mg tablet (Lasix) 20 mg PO DAILY PRN LEG SWELLING 08/13/19 06/21/22 History hydrochlorothiazide 25 mg tablet 25 mg PO QPM 08/13/19 06/21/22 History insulin glargine 100 unit/mL (3 52 unit subcut HS 08/13/19 06/21/22 History mL) subcutaneous pen (Basaglar KwikPen U-100 Insulin) losartan 100 mg tablet 100 mg PO QPM 08/13/19 06/21/22 History metformin 1,000 mg tablet 1,000 mg PO BID 08/13/19 06/21/22 History metoprolol succinate 100 mg 100 mg PO BID 08/13/19 06/21/22 History tablet,extended release 24 hr potassium citrate 15 mEq (1,620 30 meq PO BID 08/13/19 06/21/22 History mg) tablet,extended release (Urocit-K 15) repaglinide 1 mg tablet (Prandin) 1 mg PO QAM 08/13/19 06/21/22 History warfarin 5 mg tablet 5 mg PO UD 08/13/19 06/21/22 History oxycodone 5 mg tablet 5 mg PO HS PRN Pain 05/31/22 06/21/22 History potassium chloride 10 mEq 10 meq PO DAILY PRN Other 05/31/22 06/21/22 History tablet,extended release semaglutide 1 mg/dose (4 mg/3 mL) 1 mg subcut WK 05/31/22 06/21/22 History subcutaneous pen injector (Ozempic) oxycodone-acetaminophen 5 mg-325 2 tab PO Q6H PRN pain #20 tabs 06/22/22 Rx mg tablet (Percocet) warfarin 2 mg tablet 2 mg PO DAILY #60 tabs 06/22/22 Rx Patient History Medical History Atrial fibrillation anticoagulated, follows with Dr. Todd with [facility] Chronic heart failure EF 55-59%, grade 3 diastolic dysfunction CKD (chronic kidney disease), stage III Diabetes mellitus, type 2 IDDM Edema lower legs and feet > prn Lasix, wears compression hose; stable per pt since last cardio visit Enlarged aorta 3.9 cm Gout History of cardioversion X 3 History of COVID-19 08/2021-myalgias, rhinorrhea, fever, cough-lasted 5 days-denies hospitalization-full resolution of symptoms per pt Hyperlipidemia Hypertension controlled, stable per pt Kidney stones passed on own Sleep apnea NO DEVICE USED Surgical History (Updated 06/22/22 @ 09:05 by Herminio Julian PA-C) History of cardiac cath x2 > no stents History of cardiac radiofrequency ablation X 1 (DONE AT [facility]) for Atrial flutter, over 5 yrs ago History of colonoscopy History of tonsillectomy Hx of vasectomy Family History Father Family history of diabetes mellitus Grandmother (Maternal) Family history of diabetes mellitus Social History Smoking Status: Former smoker Smoking End Date: over 30 yrs; Second Hand Exposure: No; Do You Dip or Chew Tobacco: No; Tobacco Cessation Education Requested by Patient: No Hx Alcohol Use: No Hx Substance Use: No Preferred Language: Danish Communication Ability: Effective Academic Advisor Required: No Beliefs That Will Affect Care: None Current Living Situation: Spouse Other Information That Helps Us Care for You: No Feels Safe at Home: Yes Safety Concerns: Feels Safe At This Time Assistive Devices: Walker Review of Systems Review of Systems: As per HPI, all other systems reviewed and negative Physical Exam Physical Exam: GENERAL: Comfortable, morbidly obese, pleasant, no respiratory distress SKIN: Pallor, warm HEENT: Bespectacled, pale palpebral conjunctivae, no ptosis, dry buccal mucosa NECK : Supple, short neck, no tenderness CHEST : Decreased breath sounds, no tenderness HEART : Tachycardic, irregular, no obvious murmurs ABDOMEN: Some distention, nontender EXTREMITIES : Minimal LE swelling, minimal right hip tenderness, no other conspicuous deformities noted NEUROLOGIC : Coherent, no facial asymmetry, no other gross focality Results & Data Results & Data ([facility]) Vital Signs (Past 12 Hours) Vital Signs Temp Pulse Resp BP BP Pulse Ox O2 Del Method 06/23/22 20:00 37.1 C 110 H 16 97/69 L 100 Room Air 06/23/22 16:54 37.1 C 83 113/76 100 Room Air 06/23/22 15:12 37.0 C 97 H 20 94/62 L 93/63 L 97 Room Air Laboratory Results Laboratory Results WBC 8.42 K/ul (4.8-10.8) 06/23/22 21:43 RBC 4.17 M/uL (4.63-6.08) L 06/23/22 21:43 Hgb 12.7 g/dl (14.0-18.0) L 06/23/22 21:43 Hct 37.4 % (40.1-51.0) L 06/23/22 21:43 MCV 89.7 fL (80.0-100.0) 06/23/22 21:43 MCH 30.5 pg (25.0-34.0) 06/23/22 21:43 MCHC 34.0 g/dL (32.0-36.0) 06/23/22 21:43 RDW Std Deviation 44.8 fL (36.4-46.3) 06/23/22 21:43 RDW Coeff of Joni 13.8 % (11.5-14.5) 06/23/22 21:43 Plt Count 149 K/uL (130-400) 06/23/22 21:43 MPV 11.6 fL (9.4-12.4) 06/23/22 21:43 Immature Gran % (Auto) 0.4 % 06/23/22 21:43 Neut % (Auto) 76.1 % 06/23/22 21:43 Lymph % (Auto) 12.9 % 06/23/22 21:43 [place] % (Auto) 8.7 % 06/23/22 21:43 Eos % (Auto) 1.4 % 06/23/22 21:43 Baso % (Auto) 0.5 % 06/23/22 21:43 Neut # (Auto) 6.41 K/uL (1.4-6.5) 06/23/22 21:43 Lymph # (Auto) 1.09 K/uL (1.2-3.4) L 06/23/22 21:43 [place] # (Auto) 0.73 K/uL (0.24-0.82) 06/23/22 21:43 Eos # (Auto) 0.12 K/uL (0-0.50) 06/23/22 21:43 Baso # (Auto) 0.04 K/uL (0-0.2) 06/23/22 21:43 Immature Gran # (Auto) 0.03 K/uL (0.00-0.02) H 06/23/22 21:43 Platelet Estimate Normal (Normal) 06/23/22 21:43 Echinocytes 1+ 06/23/22 21:43 PT 12.1 Seconds (9.0-12.0) H 06/23/22 10:08 INR 1.1 (0.9-1.1) 06/23/22 10:08 APTT 30.5 Seconds (21.0-31.0) 06/21/22 05:30 PTT Ratio 1.1 06/21/22 05:30 Sodium 128 mmol/L (136-145) L 06/23/22 21:43 Potassium 3.9 mmol/L (3.5-5.1) 06/23/22 21:43 Chloride 95 mmol/L (98-107) L 06/23/22 21:43 Carbon Dioxide 25 mmol/L (21-32) 06/23/22 21:43 Anion Gap 8 (3-11) 06/23/22 21:43 BUN 47 mg/dl (6-23) H 06/23/22 21:43 Creatinine 1.86 mg/dl (0.6-1.4) H 06/23/22 21:43 Est Cr Clr Drug Dosing 70.7 ml/min 06/23/22 21:43 Est GFR ( Amer) 45.5 ml/min 06/23/22 21:43 Est GFR (Non-Af Amer) 39.3 ml/min 06/23/22 21:43 BUN/Creatinine Ratio 25.3 (10-20) H 06/23/22 21:43 Glucose 199 mg/dl (70-99(Fasting)) H 06/23/22 21:43 POC Glucose 232 mg/dl (70-99) H 06/23/22 20:37 Osmolality 290 mOsm/kg (280-300) 06/23/22 21:43 Lactate 1.8 mmol/L (0.4-2.0) 06/23/22 21:43 Calcium 8.5 mg/dl (8.5-10.1) 06/23/22 21:43 Magnesium 1.6 mg/dl (1.7-2.4) L 06/23/22 21:43 SARS-CoV-2, RNA, NAAT NEGATIVE (NEGATIVE) 06/21/22 Unknown Impressions Pelvis X-Ray 06/21/22 09:12 AP RIGHT HIP History: Right total hip arthroplasty. Degenerative arthritis. Postop. FINDINGS: The patient is status post a right total hip arthroplasty. The hardware is intact. No fracture or dislocation. Skin clara are in place. IMPRESSION: Right total hip arthroplasty. No evidence for hardware complication ACT 112: Negative or not required by law. Electronically signed by: Breezy Vivas M.D. 06/21/2022 1:15 PM Diagnostic Findings Chest x-ray as per my interpretation atelectasis EKG as per my interpretation : Rate 125, A. fib, LAD, LAFB, T wave flattening inferior leads
[2022-06-23] MEDS: LOSARTAN POTASSIUM 50 MG TAB PO SCH (23:57)
[2022-06-23] MEDS: hydroCHLOROthiazide 25 MG TAB PO SCH (23:57)
[2022-06-24] MEDS: MAGNESIUM SULFATE / D5W 1 GM/100 ML BAG IV SCH ×2 (00:08→02:07)
[2022-06-24] MEDS: LACTULOSE SYRUP 30 GM/45 ML UDP PO STA ×2 (00:14→05:17)
[2022-06-24 01:15] LABS: Appearance Urine Clear (Clear); Bilirubin Urine Negative (Negative); Blood Urine Negative (Negative); Color Urine Dark Yellow; Glucose Urine UA Negative (Negative); Ketones Urine Trace (Negative); Leukocyte Esterase Urine Negative (Negative); Nitrite Urine Negative (Negative); Protein Urine Negative (Negative); Specific Gravity Urine 1.024 (1.000-1.030); Urobilinogen Urine Negative (Negative)
[2022-06-24] MEDS ORDERED: METOPROLOL TARTRATE 25 MG TAB PO STA (02:45)
[2022-06-24] MEDS ORDERED: SODIUM CHLORIDE 0.9% 1000ML 1,000 ML IV ONE (05:00)
[2022-06-24] MEDS: ACETAMINOPHEN 500 MG TAB PO SCH (05:15)
[2022-06-24] MEDS ORDERED: METOPROLOL SUCC 25MG EXT REL TAB PO SCH (06:15)
[2022-06-24 06:20] LABS: Basophils # (auto) 0.03 K/uL (0-0.2); Basophils % (auto) 0.4 %; Eosinophils # (auto) 0.19 K/uL (0-0.50); Eosinophils % (auto) 2.5 %; Hematocrit (blood only) 37.1 % (40.1-51.0); Hemoglobin 12.7 g/dl (14.0-18.0); Immature Granulocytes # (auto) 0.03 K/uL (0.00-0.02); Immature Granulocytes % (auto) 0.4 %; Lymphocytes # (auto) 1.12 K/uL (1.2-3.4); Lymphocytes % (auto) 14.5 %; Mean Corpuscular Hemoglobin 29.9 pg (25.0-34.0); Mean Corpuscular Hgb Conc 34.2 g/dL (32.0-36.0); Mean Corpuscular Volume 87.3 fL (80.0-100.0); Mean Platelet Volume 11.4 fL (9.4-12.4); Monocytes # (auto) 0.68 K/uL (0.24-0.82); Monocytes % (auto) 8.8 %; Neutrophils # (auto) 5.67 K/uL (1.4-6.5); Neutrophils % (auto) 73.4 %; Platelet Count 159 K/uL (130-400); RDW Coefficient of Variation 13.6 % (11.5-14.5); RDW Standard Deviation 43.5 fL (36.4-46.3); Red Blood Count 4.25 M/uL (4.63-6.08); White Blood Count 7.72 K/ul (4.8-10.8)
[2022-06-24 06:38] LABS: INR 1.1 (0.9-1.1); Prothrombin Time 11.4 Seconds (9.0-12.0)
[2022-06-24 06:50] LABS: Calcium 8.4 mg/dl (8.5-10.1); Creatinine Clr Calc Pharmacy 81.7 ml/min; Est GFR (African American) 54.2 ml/min; Est GFR (Non-African American) 46.8 ml/min; Magnesium 2.1 mg/dl (1.7-2.4); Potassium 3.8 mmol/L (3.5-5.1)
--- NOTE | 2022-06-24 07:13 | XRay Report ---
SINGLE VIEW CHEST CLINICAL HISTORY: Renal failure FINDINGS: An AP, portable, upright chest radiograph is compared to study dated 06/08/2022. The heart i s mildly enlarged. There is prominence of the pulmonary vasculature. Atelectasis is noted at the lung bases. The lungs and pleural spaces are otherwise clear. No pneumothorax is seen. The bony thorax is grossly intact. IMPRESSION: Cardiomegaly with prominence of the pulmonary vasculature. Correlate clinically for evide nce of fluid overload/congestive change. ACT 112: Negative or not required by law. Electronically signed by: Austen Jewell M.D. 06/24/2022 7:12 AM
--- NOTE | 2022-06-24 08:10 | Progress Notes ---
DATE OF SERVICE: 06/24/2022. SUBJECTIVE: Postop day #3, status post total hip replacement. The patient was evaluated last night at the request of Dr. Holman for his usual run of hypotension. He had no undue problems. He remains comfortable. He remains without shortness of breath. He remains without chest pain. Some fluid was started last night. He presently is still getting that. It is unclear as to how long that will run. His morning labs revealed his hematocrit to be 37.1, white count is normal. His chemistries reveal sodium to be within his baseline of 135. His BUN and his creatinine are near his baseline. His urine is clean. His chest x-ray reveals some prominent vasculature. No overt signs of failure, some atelectasis. Still has not had a bowel movement. At this point in time, he is looking a little clinically depressed. OBJECTIVE: VITAL SIGNS: Stable. He is afebrile. EXTREMITIES: Calves nontender. No major swelling in his leg from out of baseline. Hip dressing is clean, dry and intact. Hip motion is supple and pain free. ABDOMEN: Soft, nontender. ASSESSMENT AND PLAN: At this point in time from hip perspective can be 50%weightbearing or more depending on his comfort. I encouraged him to get up every 2 hours to walk around. Continue to use his incentive spirometer for his atelectasis noted on his x-ray. Fluid management at this point in time is clearly up to medicine. Need to be careful about his congestive heart failure. His laboratory work is looking pretty reasonable. Discharge planning began up to case management at this point and insurance restrictions. We will defer discharge at this point to them. Follow up in 1 week in the office for Prevena removal, wound assessment, and determination of appropriate dressing. This should not be determined by anybody, but our office. INR today is 1.1. We will give 5 mg of Coumadin today. Again, encouraged to move every 2 hours. Job ID: [id number] [facility]
[2022-06-24] MEDS ORDERED: LANTUS PER UNIT CHARGE SQ ONE (09:00)
[2022-06-24] MEDS: INSULIN ASPART PER UNIT SC SCH (09:33)
[2022-06-24] MEDS: DOCUSATE SODIUM 100 MG CAP PO SCH (09:38)
[2022-06-24] MEDS: allopurinoL 100 MG TAB PO SCH (09:39)
[2022-06-24] MEDS: FERROUS GLUCONATE 324 MG TAB PO SCH (09:39)
[2022-06-24] MEDS: MULTIVITAMIN TAB PO SCH (09:39)
[2022-06-24] MEDS: ASCORBIC ACID 500 MG TAB PO SCH (09:39)
[2022-06-24] MEDS: TAMSULOSIN HCL 0.4 MG CAP PO SCH (09:39)
--- NOTE | 2022-06-24 09:42 | Hospitalist Progress Note ---
Date of Service June 24, 2022 Assessment & Plan (1) S/P total right hip arthroplasty: Plan: Severe Right Hip dysplasia, Severe osteoarthritis deformity, femur S/P Noncemented right total hip replacement by on 06/21/22 Postoperative acute blood loss anemia Currently no indication for transfusion Monitor CBC Continue incentive spirometer PT OT Pain control, wound care and DVT prophylaxis as per primary team Plan to be discharged to rehab facility today Hypotension Possibly from hypovolemia Hold diuretics, losartan for now Blood pressure improved with IV fluids Monitor Hyponatremia Likely multifactorial secondary to dehydration, diuretics Hold diuretics Sodium improved to 130 Monitor Acute Kidney Injury on CKD II-III Cr improved to 1.6 today Diuretics, losartan held Avoid nephrotoxic agents as able Gentle IV fluids given history of diastolic heart failure Monitor renal function Chronic diastolic heart failure EF 55%, TTE 2021 Diuretics currently held secondary to ABRAHAM Resume diuretics as able Monitor volume status Constipation Continue bowel regimen Urinary retention Postoperative Continue Flomax Able to void currently Follow-up with urology as outpatient A. fib S/P cardioversion INR subtherapeutic Continue metoprolol Restarted on Coumadin Monitor INR H/O PVD hyperlipidemia Continue home meds DM II HbA1c of 7.31 May 2022 Utilize insulin while hospitalized Monitor BGs DVT Px: Coumadin, SCDs Admission and Anticipated Discharge Date Admission Date: June 21, 2022 Subjective Patient is seen and examined at bedside States having heartburn, reports constipation Right hip pain is under control Denies any chest pain, shortness of breath, nausea, vomiting, dizziness Plan to be discharged to rehab facility today KUB showed no signs of obstruction. Review of Systems Review of Systems: All systems reviewed & are unremarkable except as noted in Subjective Physical Exam Physical Exam: Physical Exam: Vitals signs as noted above General Appearance:Morbidly Obese, no apparent distress Head: normocephalic, Atraumatic Eyes: normal inspection, EOMI Neck: supple, Trachea midline Respiratory/Chest: Normal breath sounds, CTA, No accessory muscle use Cardiovascular: Irregularly irregular, No murmur Abdomen/GI:Soft, Non tender, Bowel sounds present Extremities/Musculoskeletal:normal inspection, Trace edema, Right hip mild tender, swelling Neurologic/Psych:AAOX3, grossly no focal neurological deficits Skin: normal color, warm Results & Data Results & Data ([facility]) Vital Signs (Past 12 Hours) Vital Signs Temp Pulse Resp BP BP Pulse Ox O2 Del Method 06/24/22 08:26 36.8 C 86 18 117/81 97 Room Air 06/24/22 07:35 Room Air 06/24/22 06:00 98 H 16 96/59 L 97 Room Air 06/24/22 03:00 115 H 108/69 96 Room Air 06/24/22 01:04 37 C 114 H 16 94/56 L 97 Room Air Laboratory Results Short CBC 06/23/22 06/24/22 Range/Units 21:43 06:06 WBC 8.42 7.72 (4.8-10.8) K/ul Hgb 12.7 L 12.7 L (14.0-18.0) g/dl Hct 37.4 L 37.1 L (40.1-51.0) % Plt Count 149 159 (130-400) K/uL BMP 06/23/22 06/24/22 21:43 06:06 Sodium 128 L 130 L Potassium 3.9 3.8 Chloride 95 L 97 L Carbon Dioxide 25 23 BUN 47 H 45 H Creatinine 1.86 H 1.61 H Glucose 199 H 168 H Calcium 8.5 8.4 L Urine 06/24/22 Range/Units 00:45 Urine Color Dark Yellow Urine Appearance Clear (Clear) Urine pH 5.0 (4.5-7.5) Ur Specific [place] 1.024 (1.000-1.030) Urine Protein Negative (Negative) Urine Glucose (UA) Negative (Negative)
[2022-06-24] MEDS ORDERED: POLYETHYLENE (MIRALAX) 17 GM PACK PO PRN (10:10)
[2022-06-24] MEDS ORDERED: FAMOTIDINE 10 MG TABLET PO SCH (10:15)
--- NOTE | 2022-06-24 10:52 | Pharmacy Report ---
Pharmacy Glycemic Short Note 2 - Date of Service June 24, 2022 - Glycemic Short BSG Results (Last 24 hours): 06/23/22 06/23/22 06/23/22 12:24 17:08 20:37 Glucose POC Glucose 175 H 186 H 232 H 06/23/22 06/24/22 06/24/22 21:43 06:06 08:08 Glucose 199 H 168 H POC Glucose 182 H OUTPATIENT ANTIDIABETIC REGIMEN: * Lantus 52 units HS * Metformin * Ozempic * Prandin ASSESSMENT: * Mr Trevino is a 57 y/o M with a PMH of T2DM who underwent R hip replacement on 06/21/22. * Patient's BSGs yesterday (POD 3) were [phone] mg/dL. Patient received 79 units of insulin (40 units of basal and 39 units of bolus). Patient did not receive basal insulin 06/21 or 06/22. * Fasting BSG this AM is 182 mg/dL. Give additional 12 units to equal home dose of 52 units HS. Continue 52 units HS. * Tighten CR as patient's BSGs trended upwards. PLAN FOR INPATIENT GLYCEMIC CONTROL: * Hold outpatient oral diabetes medications * Basal insulin * Lantus 52 units SQ HS * Bolus insulin * NovoLog per scale ACHS or Q6hrs while NPO * Goal Range: Low 110 mg/dL - High 140 mg/dL * Correction Factor: 20 mg/dL/unit * Nutritional / Prandial insulin per carb ratio of 1 unit per 5 grams CHO consumed
--- NOTE | 2022-06-24 11:02 | XRay Report ---
KUB CLINICAL HISTORY: Constipation. FINDINGS: 4 AP supine abdominal radiographs are compared to study dated 05/06/2009. There is a nonobstr uctive abdominal bowel gas pattern. Moderate fecal retention is seen throughout the colon. No evidenc e of intraperitoneal free air is identified. There is a 4 mm nonobstructing left renal calculus. The bony structures appear intact. A right hip arthroplasty is in place. IMPRESSION: 1. Moderate constipation. 2. Left-sided nephrolithiasis. Electronically signed by: Austen Jewell M.D. 06/24/2022 11:01 AM
--- NOTE | 2022-06-24 15:39 | Electrocardiogram Report ---
Test Reason : Blood Pressure : / mmHG Vent. Rate : 126 BPM Atrial Rate : 133 BPM P-R Int : 000 ms QRS Dur : 088 ms QT Int : 310 ms P-R-T Axes : 000 -16 008 degrees QTc Int : 448 ms Atrial fibrillation with rapid ventricular response Inferior infarct , age undetermined Abnormal ECG When compared with ECG of 08-JUN-2022 16:09, No significant change was found Confirmed by Edward Morris ([id number]) on 06/24/2022 3:39:34 PM Referred By: Peter Crowell Confirmed By:Edward Morris
[2022-06-24] MEDS ORDERED: WARFARIN SOD 5 MG TAB PO SCH (16:00)
== END 2022-06-24 12:50 | DRG 470 ==
LOC: PACUINP 05:05 → ASU 05:05 → 3E 12:32